=== PATIENT | female | born 1960 | race African-American/Black ===

== ENCOUNTER 2019-02-08 12:29 | Inpatient (IN) | payer OTHER ==
[2019-02-08 15:46] VITALS: BMI 27.4
--- NOTE | 2019-02-08 17:29 | HP ---
CIWA Score Nausea/Vomitin-No Nausea/No Vomiting Muscle Tremors: 2 Anxiety: 2 Agitation: 0-Normal Activity Paroxysmal Sweats: 2 Orientation: 1-Uncertain about Date Tacttile Disturbances: 2-Mild Itch/Numbness/Burn (both feet and hands) Auditory Disturbances: 1-Very Mild Visual Disturbances: 1-Very Mild Sensitivity Headache: 1-Very Mild CIWA-Ar Total Score: 12 - Admission Criteria OASAS Guidelines: Admission for Medically Managed Detox: Requires at least one of the followin. CIWA greater than 12 2. Seizures within the past 24 hours 3. Delirium tremens within the past 24 hours 4. Hallucinations within the past 24 hours 5. Acute intervention needed for co occurring medical disorder 6. Acute intervention needed for co occurring psychiatric disorder 7. Severe withdrawal that cannot be handled at a lower level of care (continued vomiting, continued diarrhea, abnormal vital signs) requiring intravenous medication and/or fluids 8. Patient presents the following: CIWA greater than 12 Admission Criteria Met: Admission criteria met Admission ROS [facility] Chief Complaint: " detox of liquor" Allergies/Adverse Reactions: Allergies Allergy/AdvReac Type Severity Reaction Status Date / Time No Known Allergies Allergy Verified 02/08/19 16:32 History of Present Illness: 58 yo female with hx of polysubstance (cristina, heroin and alcohol) dependence is here seeking alcohol detox. Patient currently linked to [facility] on methadone 70 mg , last medicated today, dose pending verification. PMHX: HTN , [place] x2 (2015), chronic back pain, Hep C, Gallstones, bipolar , depression. Denies suicidal / homicidal ideation. Reports hx of suicide attempt x1 at age 18 yo. Reports hx of blackouts while intoxicated. Denies hx of seizures. Exam Limitations: No Limitations - Ebola screening Have you traveled outside of the country in the last 21 days: No Have you had contact with anyone from an Ebola affected area: No Have you been sick,other than usual withdrawal symptoms: No Do you have a fever: No - Review of Systems Constitutional: Chills, Loss of Appetite, Changes in sleep, Unintentional Wgt. Loss EENT: reports: Tearing, Hearing Loss (decrease hearing bilateral), Nose Congestion Respiratory: reports: SOB with Exertion Cardiac: reports: No Symptoms Reported GI: reports: Constipated (last BM two days ago), Poor Fluid Intake : reports: No Symptoms Reported Musculoskeletal: reports: Back Pain Integumentary: reports: No Symptoms Reported Patient History - Patient Medical History Hx Anemia: No Hx Asthma: No Hx Chronic Obstructive Pulmonary Disease (COPD): No Hx Cancer: No Hx Cardiac Disorders: Yes (NC x2 (2015)) Hx Hypertension: Yes Hx Hypercholesterolemia: No Hx Seizures: No Hx Dementia: No Hx Diabetes: No Hx Gastrointestinal Disorders: Yes (Gallstones, refuses surgery ) Hx Liver Disease: No Hx Genitourinary Disorders: No Hx Sexually Transmitted Disorders: No Hx Renal Disease (ESRD): No Hx Thyroid Disease: No Hx Human Immunodeficiency Virus (HIV): No Hx Hepatitis C: No Hx Depression: Yes Hx Suicide Attempt: Yes (at 18 yo ) Hx Schizophrenia: No - Patient Surgical History Past Surgical History: No Hx Neurologic Surgery: No Hx Cataract Extraction: No Hx Cardiac Surgery: No Hx Lung Surgery: No Hx Breast Surgery: No Hx Breast Biopsy: No Hx Abdominal Surgery: No Hx Appendectomy: No Hx Cholecystectomy: No Hx Genitourinary Surgery: No Hx Section: No Hx Orthopedic Surgery: No Anesthesia Reaction: No - PPD History Previous Implant?: Yes Documented Results: Negative w/o proof Implanted On Prior [facility] Admission?: No PPD to be Administered?: Yes - Reproductive History Patient : No - Smoking Cessation Smoking history: Current every day smoker Have you smoked in the past 12 months: Yes Aproximately how many cigarettes per day: 20 Hx Chewing Tobacco Use: No Initiated information on smoking cessation: Yes 'Breaking Loose' booklet given: 02/08/19 - Substance & Tx. History Hx Alcohol Use: Yes Hx Substance Use: Yes Substance Use Type: Alcohol, Cocaine, Heroin Hx Substance Use Treatment: Yes (Last detox six months ago [facility] ) - Substances Abused Alcohol Route: Oral Frequency: Daily Amount used: 30 CANS OF FOUR LOCO Age of first use: 18 Date of Last Use: 02/07/19 Cocaine Route: Smoking Frequency: Daily Amount used: $100 AND UP Age of first use: 20 Date of Last Use: 02/07/19 Heroin Route: Inhalation Frequency: 3-6 times per week Amount used: 5 BAGS Age of first use: 18 Date of Last Use: 02/07/19 Family Disease History - Family Disease History Family History: Denies Admission Physical Exam BHS - Vital Signs Vital Signs: Vital Signs - 24 hr 02/08/19 15:45 Temperature 96.4 F L Pulse Rate 51 L Respiratory 20 Rate Blood Pressure 114/62 - Physical General Appearance: Yes: Nourished, Disheveled, Mild Distress, Sweating, Anxious HEENTM: Yes: EOMI, Hearing grossly Normal, Normal ENT Inspection, Normocephalic , Normal Voice, JB, Pharynx Normal, Tm's normal, Rhinorrhea, Other (poor dentition) Respiratory: Yes: Chest Non-Tender, Lungs Clear, Normal Breath Sounds, No Respiratory Distress, No Accessory Muscle Use Neck: Yes: Within Normal Limits Breast: Yes: Breast Exam Deferred Cardiology: Yes: Regular Rhythm, Bradycardia, Murmur Abdominal: Yes: Normal Bowel Sounds, Non Tender, Flat, Soft Genitourinary: Yes: Within Normal Limits Back: Yes: Normal Inspection Musculoskeletal: Yes: Within Normal Limits Extremities: Yes: Normal Capillary Refill, Normal Inspection, Normal Range of Motion, Non-Tender Neurological: Yes: office assistant receptionist II-XII NML intact, Fully Oriented, Alert, Motor Strength 5/5, Normal Response, Depressed Affect Integumentary: Yes: Other (lesion back of nect, no infection) Lymphatic: Yes: Within Normal Limits - Addiitonal Findings: Patient to follow up with primary care provider upon discharge re: pending gallbladder removal surgery. - Diagnostic (1) Hypertension Current Visit: Yes Status: Chronic Qualifiers: Hypertension type: essential hypertension Qualified Code(s): I10 - Essential (primary) hypertension (2) Opioid dependence on agonist therapy Current Visit: Yes Status: Chronic Comment: MMTP on methadone 70 mg , last medicated today, dose pending verification (3) Alcohol dependence with uncomplicated withdrawal Current Visit: Yes Status: Acute (4) Gallstone Current Visit: Yes Status: Chronic Qualifiers: Cholecystitis acuity: chronic Cleared for Admission S - Detox or Rehab [facility] Level of Care: Medically Managed (DETOX PROTOL: ATIVAN) [facility] Breath Alcohol Content Breath Alcohol Content: 0 Urine Pregancy Test - Result Urine Test Results: Negative - NO Line Present Urine Drug Screen - Results Drug Screen Negative: No Urine Drug Screen Results: CRISTINA-Cocaine, OPI-Opiates, MTD-Methadone, FEN-Fentanyl Inpatient Rehab Admission - Rehab Decision to Admit Inpatient rehab admission?: No
[2019-02-08] MEDS ORDERED: NICOTINE POLACRILEX 2 MG GUM BUC PRN (17:33)
[2019-02-08] MEDS ORDERED: ACETAMINOPHEN 325 MG TABLET (FP) PO PRN ×2 (17:33)
[2019-02-08] MEDS ORDERED: METHOCARBAMOL 500 MG TABLET PO PRN (17:33)
[2019-02-08] MEDS ORDERED: MAG HYDROX/AL HYDROX/SIMETH 30 ML UNIT-DOSE CUP PO PRN (17:33)
[2019-02-08] MEDS ORDERED: MELATONIN 5 MG TABLETS PO PRN (17:33)
[2019-02-08] MEDS ORDERED: MAGNESIUM HYDROX 2400MG/30ML ORAL SUSPENSION 30 ML CUP PO PRN (17:33)
[2019-02-08] MEDS ORDERED: MAGNESIUM CITRATE 300 ML BOTTLE PO PRN (17:33)
[2019-02-08] MEDS ORDERED: LORazepam 1 MG TABLET PO PRN (17:33)
[2019-02-08] MEDS ORDERED: BISMUTH SUBSALICYLATE 524 MG/30 ML UD PO PRN (17:33)
[2019-02-08] MEDS ORDERED: MENTHOL/PHENOL 1 EACH UD MM PRN (17:33)
[2019-02-08] MEDS ORDERED: BACITRACIN 0.9 GM PACKET TP ONE (17:45)
[2019-02-08] MEDS ORDERED: THIAMINE HCL 100 MG TABLET (FP) PO SCH (22:00)
[2019-02-08] MEDS: GABAPENTIN 300 MG CAPSULE (FP) PO SCH (22:30)
[2019-02-08] MEDS: NAPROXEN 500 MG TABLET (FP) PO SCH (22:30)
[2019-02-08] MEDS: LORazepam 2 MG TABLET PO SCH (23:43)
[2019-02-09] MEDS: LORazepam 2 MG TABLET PO SCH ×2 (06:32→11:32)
[2019-02-09] MEDS ORDERED: METHADONE HCL 10 MG TABLET PO ONE (08:49)
--- NOTE | 2019-02-09 09:21 | CONSULT ---
[facility] Psychiatric Consult - Data Date of interview: 02/09/19 Admission source: Self-referred Identifying data: Ms Rodriguez is a 58 years old single Black female, mother of a 22 years old son, unemployed receiving SSI, domiciled seeking detox treatment for alcohol, opioid and cocaine Substance Abuse History: Reports history of alcohol, heroin and cocaine use. Refer to design specialist for further information Medical History: Significant for hypertension, hepatitis C, chronic back pain, gallstones and histoy of myocardial infarction x2. Patient is on methadone 70 mg /day([facility] MMTP). Smokes 5 cigarettes Psychiatric History: Reports that her first psychiatric contact was at age 15 when she was admitted to [facility], diagnosed with Bipolar Disorder and started on psychotropic medications. Reports missing a few appointments over the years but acknowledges fair adherence to OPD care and medications. Reports thar for the last 20 years, she has been receiving outpatient psychiatric treatment at [facility] and she is prescribed Prozac 40 mg po daily, Seroquel 50 mg po HS and Ambien 10 mg po HS. Denies previous suicidal attempt. At present, denies experiencing psychotic, manic or depressive symptoms, S/H ideations. However, reports sleeping poorly Physical/Sexual Abuse/Trauma History: Denies history of emotional, physical or sexual abuse as well as DV relationship Additional Comment: Denies criminal history Mental Status Exam - Mental Status Exam Alert and Oriented to: Place, Person Patient Appearance: Well Groomed Mood: Hopeful, Euthymic Affect: Appropriate Patient Behavior: Cooperative Speech Pattern: Clear Voice Loudness: Normal Thought Process: Intact, Goal Oriented Thought Disorder: Not Present Hallucinations: Denies Suicidal Ideation: Denies Homicidal Ideation: Denies Insight/Judgement: Fair Sleep: Poorly Appetite: Poor Muscle strength/Tone: Normal Gait/Station: Normal Psychiatric Findings - Problem List (Bosque 1, 2,3) (1) Bipolar disorder Current Visit: Yes Status: Chronic (2) Substance-induced sleep disorder Current Visit: Yes Status: Acute (3) Alcohol dependence with uncomplicated withdrawal Current Visit: Yes Status: Acute (4) Cocaine dependence Current Visit: Yes Status: Acute (5) Opioid dependence on agonist therapy Current Visit: Yes Status: Chronic Comment: MMTP on methadone 70 mg , last medicated today, dose pending verification (6) Nicotine dependence Current Visit: Yes Status: Chronic (7) Hypertension Current Visit: Yes Status: Chronic Qualifiers: Hypertension type: essential hypertension Qualified Code(s): I10 - Essential (primary) hypertension (8) Gallstone Current Visit: Yes Status: Chronic Qualifiers: Cholecystitis acuity: chronic (9) Hepatitis C Current Visit: Yes Status: Chronic (10) Myocardial infarction Current Visit: Yes Status: Resolved - Initial Treatment Plan Initial Treatment Plan: 1) Continue Prozac 40 mg po daily and Seroquel 50 mg po HS. 2) Start Belsomra 10 mg po HS prn for insomnia. 3) Continue inpatient detoxification
[2019-02-09] MEDS ORDERED: METHADONE 40 MG, METHADONE 30 MG PO ONE (09:30)
[2019-02-09 09:35] VITALS: BP 120/54; PULSE 51; TEMP 97.9
[2019-02-09] MEDS ORDERED: PRENATAL VITAMINS W/ FOLIC ACID TABLET (FP) PO SCH (10:00)
[2019-02-09] MEDS ORDERED: amLODIPine BESYLATE 10 MG TABLET (FP) PO SCH (10:00)
[2019-02-09] MEDS ORDERED: FLUoxetine HCL 20 MG CAPSULE (FP) PO SCH (10:00)
[2019-02-09] MEDS ORDERED: NICOTINE 14 MG/24 HOURS TOPICAL PATCH TD SCH (10:00)
[2019-02-09] MEDS ORDERED: ASPIRIN 81 MG CHEWABLE TABLETS PO SCH (10:00)
[2019-02-09] MEDS ORDERED: METHADONE HCL 40 MG DISPERSABLE TABLET ONE (11:07)
[2019-02-09] MEDS ORDERED: METHADONE HCL 10 MG TABLET ONE (11:07)
[2019-02-09] MEDS: NAPROXEN 500 MG TABLET (FP) PO SCH (11:27)
[2019-02-09] MEDS: GABAPENTIN 300 MG CAPSULE (FP) PO SCH (11:28)
[2019-02-09 11:32] LABS: HEMATOCRIT 38.3 % (32.4-45.2); HEMOGLOBIN 12.6 GM/dL (10.7-15.3); MCH 29.5 pg (25.7-33.7); MCHC 32.8 g/dl (32.0-36.0); MEAN CELL VOLUME 89.9 fl (80-96); MEAN PLT VOLUME 10.7 fl (7.5-11.1); PLATELET COUNT 177 K/MM3 (134-434); RBC 4.26 M/mm3 (3.60-5.2); RDW 14.9 % (11.6-15.6); WHITE BLOOD COUNT 6.6 K/mm3 (4.0-10.0)
[2019-02-09 11:43] LABS: URINE APPEARANCE SLCLOUDY; URINE BILIRUBIN NEGATIVE (<2.0 mg/dL); URINE COLOR AMBER; URINE GLUCOSE (UA) NEGATIVE (NEGATIVE); URINE KETONE NEGATIVE (NEGATIVE); URINE LEUK ESTERASE TRACE (NEGATIVE); URINE NITRITE NEGATIVE (NEGATIVE); URINE PROTEIN NEGATIVE (NEGATIVE); URINE UROBILINOGEN 4.0 E.U/dl mg/dL (0.2-1.0)
[2019-02-09 11:49] LABS: EPI CELLS RARE /HPF (FEW); URINE BACTERIA MANY /hpf (NONE SEEN); URINE MUCUS RARE
--- NOTE | 2019-02-09 11:52 | DS ---
[facility] Detox Discharge Summary Admission Date: 02/08/19 Discharge Date: 02/09/19 - History Present History: Alcohol Dependence, Opioid Dependence, MMTP Pertinent Past History: pt came to the unit yesterday for alcohol detox. pt was noted to be very sleepy this morning. Roommate stated that pt took a 'benzo". Pt later stated she had brought Ambien with her and took one last night. Pt states that she gave another to a male pt in the unit- would not disclose name of this pt. Pt to leave AMA today- will f/u at [facility] for MAT-methadone - Physical Exam Results Vital Signs: Vital Signs Temperature 97.9 F 02/09/19 09:34 Pulse Rate 51 L 02/09/19 09:34 Respiratory Rate 16 02/09/19 09:34 Blood Pressure 120/54 L 02/09/19 09:34 O2 Sat by Pulse Oximetry (%) - Medication Discharge Medications: Ambulatory Orders Amlodipine Besylate [Norvasc -] 10 mg PO DAILY 02/08/19 Aspirin [ASA -] 81 mg PO DAILY 02/08/19 Benazepril HCl [Lotensin] 40 mg PO DAILY 02/08/19 Gabapentin [Neurontin -] 300 mg PO BID 02/08/19 Naproxen [Naprosyn -] 500 mg PO BID 02/08/19 Quetiapine Fumarate [Seroquel -] 50 mg PO HS 02/08/19 Zolpidem Tartrate [Ambien] 10 mg PO HS 02/08/19
--- NOTE | 2019-02-09 12:03 | EKG ---
Test Reason : Blood Pressure : / mmHG Vent. Rate : 048 BPM Atrial Rate : 048 BPM P-R Int : 122 ms QRS Dur : 084 ms QT Int : 482 ms P-R-T Axes : 074 069 057 degrees QTc Int : 430 ms SINUS BRADYCARDIA VOLTAGE CRITERIA FOR LEFT VENTRICULAR HYPERTROPHY T WAVE ABNORMALITY, CONSIDER ANTERIOR ISCHEMIA ABNORMAL ECG NO PREVIOUS ECGS AVAILABLE Confirmed by GLADYS LEONARD MD ([id number]) on 02/09/2019 12:02:46 PM Referred By: Confirmed By:GLADYS LEONARD MD
[2019-02-09 12:22] LABS: ALBUMIN 3.4 g/dl (3.4-5.0); ALK PHOS 76 U/L (45-117); ANION GAP 7 MMOL/L (8-16); BILIRUBIN,TOTAL 0.5 mg/dL (0.2-1); BLOOD UREA NITROGEN 15 mg/dL (7-18); CHLORIDE 108 mmol/L (98-107); CO2 25 mmol/L (21-32); GLUCOSE,RANDOM 100 mg/dL (74-106); POTASSIUM 4.1 mmol/L (3.5-5.1); SGOT/AST 31 U/L (15-37); SGPT/ALT 28 U/L (13-61); SODIUM 141 mmol/L (136-145)
[2019-02-09] MEDS ORDERED: QUEtiapine FUMARATE 50 MG TABLET PO SCH (22:00)
[2019-02-09] MEDS ORDERED: SUVOREXANT 10 MG TABLET PO PRN (22:00)
[2019-02-09] MEDS ORDERED: LORazepam 1 MG TABLET PO SCH (23:00)
[2019-02-10] MEDS ORDERED: METHADONE 40 MG, METHADONE 30 MG PO SCH (06:00)
[2019-02-10] MEDS ORDERED: METHADONE HCL 40 MG DISPERSABLE TABLET PO SCH (06:00)
[2019-02-10] MEDS ORDERED: LORazepam 0.5 MG TABLET PO PRN (23:00)
[2019-02-10] MEDS ORDERED: LORazepam 0.5 MG TABLET PO SCH (23:00)
== END 2019-02-09 11:30 | disposition left against medical advice (07) | DRG 770 ==
LOC: YASAS 12:29 → Y6N 17:37
PROVIDERS: ADMIT Surgery; ATTEND Surgery
PROC: HZ2ZZZZ Detoxification Services for Substance Abuse Treatment (ICD-10-PCS; principal; 2019-02-08)
DX: F10.230 Alcohol dependence with withdrawal, uncomplicated (principal); F14.20 Cocaine dependence, uncomplicated; F11.23 Opioid dependence with withdrawal; F17.210 Nicotine dependence, cigarettes, uncomplicated; F19.282 Other psychoactive substance dependence with psychoactive substance-induced sleep disorder; F31.9 Bipolar disorder, unspecified; M54.5 Low back pain; B18.2 Chronic viral hepatitis C; I25.10 Atherosclerotic heart disease of native coronary artery without angina pectoris; I10 Essential (primary) hypertension; I25.2 Old myocardial infarction; K80.20 Calculus of gallbladder without cholecystitis without obstruction; Z91.5 Personal history of self-harm
CPT/HCPCS: 36415; 80053; 81003; 81015; 85027; 86593; 87389; 93005; 93010